=== PATIENT | female | born 2000 | race Caucasian/White ===

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

== ENCOUNTER → 2020-08-11 | Outpatient (CLI) | payer OTHER | END | disposition home or self-care (01) | LOC: LABWHC1 13:59 | PROVIDERS: ATTEND Obstetrics & Gynecology | DX: Z34.81 Encounter for supervision of other normal pregnancy, first trimester (principal); Z3A.00 Weeks of gestation of pregnancy not specified | CPT/HCPCS: 86900; 86901 ==

== ENCOUNTER 2021-01-16 22:30 | Outpatient (CLI) | payer OTHER ==
[2021-01-16] MEDS ORDERED: ONDANSETRON 4 MG/2 ML VIAL IVP STA (23:10)
[2021-01-16] MEDS: LACTATED RINGERS 1,000 ML IV SCH (23:30)
[2021-01-16 23:38] VITALS: BP 136/77; PULSE 125; RESP 18; TEMP 98.2
[2021-01-17 00:01] LABS: Appearance,Urine Cloudy (Clear); Bilirubin,Urine Negative (Negative); Blood,Urine Negative (Negative); Color,Urine Yellow; Glucose,Urine (UA) Negative (Negative); Ketones,Urine 4+ (Negative); Leukocyte Esterase,Urine Small (Negative); Mucus,Urine Rare /hpf; Nitrite,Urine Negative (Negative); Protein,Urine 1+ (Negative); Specific Gravity,Urine 1.031 (1.001-1.035); Squamous Epithelial Cell,Urine 7 /hpf (0-4); WBC,Urine 3 /hpf (0-5)
[2021-01-17] MEDS: LACTATED RINGERS 1,000 ML IV SCH (00:42)
--- NOTE | 2021-01-26 17:39 | P.MSEPDOC ---
Presenting Problems - Arrival Data Date of Arrival on Unit: 01/16/21 Time of Arrival on Unit: 22:30 Mode of Transport: Ambulatory - Complaint OB-Reason for Admission/Chief Complaint: Acute Nausea/Vomiting Comment: pt states having n/v all day, back pain and stomach tighening Medical History - Information : 2 Para: 1 Term: 1 : 0 Abortions: Spontaneous or Elective: 0 Number of Living Children: 1 - Gestational Age Gestational Age by CRYSTAL (wks/days): 33 Weeks and 3 Days Review of Systems - Review of Systems Constitutional: No problems Breast: No problems ENT: No problems Cardiovascular: No problems Respiratory: No problems Gastrointestinal: No problems Genitourinary: No problems Musculoskeletal: No problems Neurological: No problems Skin: No problems Vital Signs - Temperature Temperature: 98.2 F Temperature Source: Temporal Artery Scan - Pulse Right Brachial Pulse Rate: 125 Pulse Assessment Method: Automatic Cuff - Respirations Respiratory Rate: 18 Oxygen Delivery Method: Room Air - Blood Pressure Right Arm Blood Pressure: 136/77 Blood Pressure Mean: 96 Blood Pressure Source: Automatic Cuff Medical Screen Scoring (Pre) - Cervical Exam Dilation: 0 cm = 0 Membranes: Intact - Uterine Contractions Frequency: < 36 weeks = 6 Intensity: N/A - Maternal Vital Signs Maternal Temperature: N/A Maternal Blood Pressure: N/A Signs of Preeclampsia: N/A Maternal Respirations: N/A - Maternal Trauma Maternal Trauma: N/A - Assessment - Baby A Baseline FHR: 140 Heart Rate - NICHD Category: Category I (Normal) = 0 NST: Reactive Position: N/A Station: N/A - Total Score - Baby A Total Score - Baby A: 6 - Total Score - Baby B Total Score - Baby B: 6 - Total Score - Baby C Total Score - Baby C: 6 - Level of Risk - Baby A Level of Risk - Baby A: Medium (6-9) - Level of Risk - Baby B Level of Risk - Baby B: Medium (6-9) - Level of Risk - Baby C Level of Risk - Baby C: Medium (6-9) Physician Notification (Pre) - Physician Notified Physician Notified Date: 01/16/21 Physician Notified Time: 23:10 New Order Received: Yes - Notification Comment Comment: pt given IVF, zofran, ua obtained Disposition - Disposition OB Disposition: Triage Discharge Date: 01/17/21 Discharge Time: 01:25 I agree with the RN Medical Screening Exam: Yes Physician's MSE Comment: Patient was seen and examined by myself Case reviewed; plan agreed upon as documented in EMR&OBIX.: Yes Diagnosis: VOMITING OF , UNSPECIFIED
== END 2021-01-17 01:35 | disposition home or self-care (01) ==
LOC: FBPOP 22:30
PROVIDERS: ATTEND Obstetrics & Gynecology Obstetrics
DX: O21.2 Late vomiting of pregnancy (principal); Z3A.33 33 weeks gestation of pregnancy
CPT/HCPCS: 59025; 96361; 96367; 96374; 81001; G0463; J2405; 99214

== ENCOUNTER 2021-02-08 00:10 | Outpatient (CLI) | payer OTHER ==
[2021-02-08 00:32] VITALS: BP 127/78; PULSE 96; RESP 16; TEMP 96.6
--- NOTE | 2021-02-17 14:12 | P.MSEPDOC ---
Presenting Problems - Arrival Data Date of Arrival on Unit: 02/08/21 Time of Arrival on Unit: 00:10 Mode of Transport: Ambulatory - Complaint OB-Reason for Admission/Chief Complaint: Possible Onset of Labor Comment: Pt presents to triage with c/o contx that started around 2100. Contractions tracing 2-4 minutes apart per toco. Medical History - Information : 2 Para: 1 Term: 0 : 1 Abortions: Spontaneous or Elective: 0 Number of Living Children: 1 - Gestational Age Gestational Age by CRYSTAL (wks/days): 36 Weeks and 5 Days Review of Systems - Review of Systems Constitutional: No problems Breast: No problems ENT: No problems Cardiovascular: No problems Respiratory: No problems Gastrointestinal: No problems Genitourinary: No problems Musculoskeletal: No problems Neurological: No problems Skin: No problems Vital Signs - Temperature Temperature: 96.6 F Temperature Source: Temporal Artery Scan - Pulse Right Brachial Pulse Rate: 96 Pulse Assessment Method: Automatic Cuff - Respirations Respiratory Rate: 16 Oxygen Delivery Method: Room Air - Blood Pressure Right Arm Blood Pressure: 127/78 Blood Pressure Mean: 94 Blood Pressure Source: Automatic Cuff Medical Screen Scoring (Pre) - Cervical Exam Dilation: 1-3 cm = 1 Effacement: Exam Deferred Membranes: Intact - Uterine Contractions Frequency: > or = 36 weeks =2 Duration: > 40 seconds = 2 Intensity: N/A - Maternal Vital Signs Maternal Temperature: N/A Maternal Blood Pressure: N/A Signs of Preeclampsia: N/A Maternal Respirations: N/A - Maternal Trauma Maternal Trauma: N/A - Assessment - Baby A Baseline FHR: 115 Heart Rate - NICHD Category: Category I (Normal) = 0 NST: Reactive Position: N/A Station: N/A - Total Score - Baby A Total Score - Baby A: 5 - Total Score - Baby B Total Score - Baby B: 5 - Total Score - Baby C Total Score - Baby C: 5 - Level of Risk - Baby A Level of Risk - Baby A: Low (0-5) - Level of Risk - Baby B Level of Risk - Baby B: Low (0-5) - Level of Risk - Baby C Level of Risk - Baby C: Low (0-5) Physician Notification (Pre) - Physician Notified Physician Notified Date: 02/08/21 Physician Notified Time: 01:30 New Order Received: Yes - Notification Comment Comment: Dr. Short called re: maternal c/o contx starting at 2100, maternal status,. status, SVE, reactive NST, contx pattern, pain scale, and hx of labor. Orders received to give pt big glass of water to see if contx space out and recheck. cervix in 1 hour. If pt makes no cervical change pt can be discharged home. Disposition - Disposition OB Disposition: Discharge to home Discharge Date: 02/08/21 Discharge Time: 02:35 I agree with the RN Medical Screening Exam: Yes Physician's MSE Comment: Patient was not seen or examined by myself Case reviewed; plan agreed upon as documented in EMR&OBIX.: Yes Diagnosis: RELATED CONDITIONS, UNSPECIFIED, THIRD TRIMESTER
== END 2021-02-08 02:35 | disposition home or self-care (01) ==
LOC: FBPOP 00:10
PROVIDERS: ATTEND Obstetrics & Gynecology Obstetrics
DX: O26.93 Pregnancy related conditions, unspecified, third trimester (principal); Z3A.36 36 weeks gestation of pregnancy
CPT/HCPCS: 59025; G0463; 99213

== ENCOUNTER 2021-02-20 00:57 | Inpatient (IN) | payer OTHER ==
[2021-02-20] MEDS ORDERED: OXYTOCIN 10 UNIT/ML 1 ML VIAL IM PRN (03:53)
[2021-02-20] MEDS ORDERED: METHYLERGONOVINE 0.2 MG/ML 1 ML AMP IM PRN (03:53)
[2021-02-20] MEDS ORDERED: TERBUTALINE 1 MG/ML VIAL SQ PRN (03:53)
[2021-02-20] MEDS ORDERED: LIDOCAINE 0.5% (PF) 5 MG/ML (50 ML SDV) SQ PRN (03:53)
[2021-02-20] MEDS ORDERED: CARBOPROST TROMETHAMINE 250 MCG/ML 1 ML AMP IM PRN (03:53)
[2021-02-20] MEDS ORDERED: BUTORPHANOL 1 MG/ML 1 ML VIAL IV PRN (03:57)
[2021-02-20] MEDS: LACTATED RINGERS 1,000 ML IV SCH ×3 (04:10→14:15)
[2021-02-20 04:18] LABS: Basophils % (A) 0 %; Eosinophils # (A) 0.3 k/uL (0-0.7); Eosinophils % (A) 3 %; HCT 37.1 % (34.0-46.0); HGB 13.1 gm/dL (11.4-16.0); Lymphocytes # (A) 2.3 k/uL (1.0-4.8); Lymphocytes % (A) 20 %; MCH 31.1 pg (25.0-35.0); MCHC 35.3 g/dL (31.0-37.0); Mean Platelet Volume 10.1; Monocytes # (A) 0.6 k/uL (0-1.0); Monocytes % (A) 6 %; Neutrophils # (A) 7.8 k/uL (1.3-7.7); Neutrophils % (A) 70 %; Platelet Count 280 k/uL (150-450); RBC 4.22 m/uL (3.80-5.40); RDW 12.9 % (11.5-15.5); WBC 11.2 k/uL (3.8-10.6)
[2021-02-20] MEDS ORDERED: OXYTOCIN 30 UNITS/500 ML NS 30 UNIT in SALINE 1 500ML.BAG IV SCH (07:00)
--- NOTE | 2021-02-20 09:21 | P.HPOB ---
History of Present Illness H&P Date: 02/20/21 Chief Complaint: My water broke at home, clear fluid This is a 21-year-old female 2 para 1001 EDC 03/03/2021 at 38-3/7 weeks' gestation. Patient presented to the hospital with a complaint of her water breaking at home, clear fluid. She was having no uterine contractions upon admission. Fetus is been active throughout the . Past medical history significant for anxiety and depression, lymphedema, ovarian cyst age 16, benign. Past surgical history tubes in the ears as a child, wisdom teeth extracted. Current medications vitamins daily, baby aspirin daily. ALLERGIES include solid 3 to which reports swelling of the tongue and lips. eggs, soy ALLERGY and penicillin ALLERGY to which patient does not report a reaction. Family history is significant for for hypertension, depression, pancreatic cancer, heart attack, and benign ovarian cysts. Social history patient is a previous tobacco smoker, she is engaged to be , she denies alcohol or drug use. history significant for blood type O-, RhoGam received. Group B strep cultures negative. HIV testing, gonorrhea and chlamydia cultures, VDRL, urine culture all negative. One-hour Glucola 114. On exam patient is 5 foot 3 inches, 172 pounds, blood pressure 138/78, pulse 86. The general physical exam is within normal limits. There is obvious clear fluid on the perineal body. Cervix is 3 cm dilated, 60% effaced, -2 station, vertex presentation. heart rate is consistent with reactive NST. Mild uterine contractions are noted. Impression: 38-3/7 weeks intrauterine , spontaneous amniorrhexis. All signs reassuring. Plan: Oxytocin per hospital protocol. Close maternal and surveillance. Anticipate normal spontaneous vaginal delivery. Analgesic options reviewed with the patient. Past Medical History Past Medical History: Asthma Additional Past Medical History / Comment(s): depression, anxiety. History of Any Multi-Drug Resistant Organisms: None Reported Past Surgical History: Ear Surgery Additional Past Surgical History / Comment(s): Sentinel teeth removed, tubes in ears Past Anesthesia/Blood Transfusion Reactions: No Reported Reaction Past Psychological History: Anxiety, Depression Additional Psychological History / Comment(s): cutting self. Smoking Status: Former smoker Past Alcohol Use History: None Reported Past Drug Use History: Marijuana Additional Drug Use History / Comment(s): stop using Marijuana at begining of prgnancy when found out. - Past Family History Mother History Unknown: Yes Family Medical History: Congestive Heart Failure (CHF) Medications and Allergies Home Medications Medication Instructions Recorded Confirmed Type Pnv No.95/Ferrous Fum/Folic AC 1 tab PO ONCE 08/07/19 02/20/21 History [ Multivitamin Tablet] Aspirin [Children's Aspirin] 81 mg PO DAILY 01/16/21 02/20/21 History Allergies Allergy/AdvReac Type Severity Reaction Status Date / Time amoxicillin Allergy Swelling Verified 02/20/21 01:01 celery Allergy Swelling Verified 02/20/21 01:01 egg Allergy Swelling Verified 02/20/21 01:01 Penicillins Allergy Swelling Verified 02/20/21 01:01 soy Allergy Swelling Verified 02/20/21 01:01 Exam Vital Signs Temp Pulse Resp BP Pulse Ox 02/20/21 03:56 97.9 F 98 98 H 125/82 97 02/20/21 01:03 96.8 F L 86 16 133/78 99 Intake and Output 02/19/21 02/20/21 02/20/21 22:59 06:59 14:59 Other: # Voids 1 Weight 78.018 kg See dictation under HPI please Results Result Diagrams: 02/20/21 04:05 Abnormal Lab Results - Last 24 Hours (Table) 02/20/21 Range/Units 04:05 WBC 11.2 H (3.8-10.6) k/uL Neutrophils # 7.8 H (1.3-7.7) k/uL Assessment and Plan Assessment: 38-3/7 weeks intrauterine , spontaneous amniorrhexis at home. All signs reassuring. Plan: Oxytocin per hospital protocol. Continue close maternal and surveillance. Analgesic options reviewed with the patient. Anticipate normal spontaneous vaginal delivery. Time with Patient: Less than 30
[2021-02-20] MEDS ORDERED: ROPIVACAINE 100 MG, fentaNYL (PF). 200 MCG in SODIUM CHLORIDE 0.9% 76 ML EPIDURAL ONE (10:30)
[2021-02-20] MEDS ORDERED: BENZOCAINE/MENTHOL SPRAY 1 GM/SPRAY AEROSOL TOPICAL PRN (14:17)
[2021-02-20] MEDS ORDERED: diphenhydrAMINE 50 MG/ML 1 ML VIAL IVP PRN ×2 (14:17)
[2021-02-20] MEDS ORDERED: HYDROCORTISONE 2.5% RECTAL CREAM 30 GM TUBE RECTAL PRN (14:17)
[2021-02-20] MEDS ORDERED: LANOLIN CREAM 5 GM TUBE TOPICAL PRN (14:17)
[2021-02-20] MEDS ORDERED: ACETAMINOPHEN TAB 325 MG TAB PO PRN (14:17)
[2021-02-20] MEDS ORDERED: ZOLPIDEM 5 MG TAB PO PRN (14:17)
[2021-02-20] MEDS ORDERED: diphenhydrAMINE 25 MG CAP PO PRN (14:17)
[2021-02-20] MEDS ORDERED: SIMETHICONE 80 MG CHEWABLE PO PRN (14:17)
[2021-02-20] MEDS ORDERED: diphenhydrAMINE 50 MG CAP PO PRN (14:17)
--- NOTE | 2021-02-20 14:17 | P.PROBDLV ---
Vaginal Delivery Note - . Vaginal Delivery Note: This is a 21-year-old white female 2 para 1001 EDC 03/03/2021 at 38-3/7 weeks' gestation who presented earlier this morning with spontaneous amniorrhexis, clear fluid which occurred at home. is remarkable for blood type O negative, rubella status immune, group B strep cultures negative. Please see dictated history and physical for details. Oxytocin was started per hospital protocol. Epidural was placed per her request. heart tones were reassuring throughout the first and second stages of labor. She became completely dilated at 13 30 hours and began the second stage of labor at that time. With excellent maternal expulsive efforts the perineal body was prepped and draped in usual sterile fashion, and the infant's head delivered occiput anterior. He restituted accordingly. There was no nuchal cord noted. Patient was officially delivered of a liveborn male infant at 1346 hrs. Umbilical cord was doubly clamped and ligated, he was handed to waiting nurses for evaluation where scores of 8 and 9 at one and 5 minutes respe ctively were given. weighed 7 pounds 10.6 ounces or 3475 g. Placenta delivered spontaneously, it was inspected and noted to be intact with trivascular cord at 1350 hrs. At this time the uterus is massaged. Inspection of cervix, vagina, perineum, and perirectal areas reveals no lacerations or defects. Total estimated blood loss 450 mL's. Patient is allowed to begin the bonding experience in the LDR with her son. She is requesting circumcision for her baby.
[2021-02-20 20:02] VITALS: RESP 16
[2021-02-20] MEDS: SENNOSIDES-DOCUSATE SODIUM 1 EACH TAB PO SCH (20:47)
[2021-02-20] MEDS: IBUPROFEN 600 MG TAB PO SCH (20:47)
[2021-02-21] MEDS: IBUPROFEN 600 MG TAB PO SCH ×3 (02:55→15:16)
[2021-02-21] MEDS ORDERED: Rhogam IMMUNE GLOBULIN 1,500 UNIT/1 ML IM ONE (04:39)
[2021-02-21] MEDS: LACTATED RINGERS 1,000 ML IV SCH (07:45)
[2021-02-21] MEDS: SENNOSIDES-DOCUSATE SODIUM 1 EACH TAB PO SCH (07:59)
--- NOTE | 2021-02-21 09:22 | P.DS ---
Providers Date of admission: 02/20/21 03:50 Expected date of discharge: 02/21/21 Attending physician: Rajni Brasher Primary care physician: Stated None Hospital Course: This is a 21-year-old female 2 para 1001 EDC 520 11/03/1929 3/7 weeks' gestation. Patient presented with spontaneous amniorrhexis which occurred at home, clear fluid. remarkable for blood type O-, rubella status immune, group B strep cultures negative. Please see dictated history and physical for details. Oxytocin augmentation was started. Epidural was placed per her request. She went on to deliver a liveborn male infant vaginally, with scores of 8 and 9 at one and 5 minutes respectively. weighed 7 pounds 10.6 ounces or 3475 g. There was no episiotomy or laceration encountered. Estimated blood loss 1 50 mL's. Please see dictated delivery note for details. This morning the patient is doing well. She is voiding, ambulating, passing flatus without difficulty. Vital signs are stable and she is afebrile. Fundus is firm and in the midline, symmetric and 18 week size. Extremities are negative for edema. is doing well, circumcision will be performed this morning. Patient is judged to be in very good condition for discharge home. She will follow-up with me in the office in 6 weeks. I have reminded her no intercourse, tampons or douching. We have discussed briefly options for contraception and we will discuss this further in the office. She will use [id number] Advil or Aleve, or Motrin as needed for pain. I've asked her to call me with any fevers shakes or chills, foul smelling or copious lochia, with the passage of large blood clots, with any pain not alleviated by [id number] products, or indeed with any concerns. Assessment: Doing well day #1 Patient Condition at Discharge: Good Plan - Discharge Summary Discharge Rx Participant: No New Discharge Prescriptions: No Action Pnv No.95/Ferrous Fum/Folic AC [ Multivitamin Tablet] 1 tab PO ONCE Aspirin [Children's Aspirin] 81 mg PO DAILY Discharge Medication List Pnv No.95/Ferrous Fum/Folic AC [ Multivitamin Tablet] 1 tab PO ONCE 08/07/19 [History] Aspirin [Children's Aspirin] 81 mg PO DAILY 01/16/21 [History] Follow up Appointment(s)/Referral(s): Rajni Brasher MD [STAFF PHYSICIAN] - 6 Weeks Discharge Disposition: HOME SELF-CARE
[2021-02-22] MEDS: SENNOSIDES-DOCUSATE SODIUM 1 EACH TAB PO SCH ×2 (02:10→15:03)
[2021-02-22] MEDS: IBUPROFEN 600 MG TAB PO SCH ×2 (02:13→15:03)
[2021-02-22 16:16] VITALS: BP 118/72; PULSE 68; TEMP 98.3
== END 2021-02-22 18:00 | disposition home or self-care (01) | DRG 807 ==
LOC: FBPOP 00:57 → 4FBP 03:50
PROVIDERS: ADMIT Obstetrics & Gynecology Obstetrics; ATTEND Obstetrics & Gynecology
PROC: 10E0XZZ Delivery of Products of Conception, External Approach (ICD-10-PCS; principal; 2021-02-20)
DX: O99.52 Diseases of the respiratory system complicating childbirth (principal); Z37.0 Single live birth; J45.909 Unspecified asthma, uncomplicated; Z3A.38 38 weeks gestation of pregnancy; Z79.82 Long term (current) use of aspirin; Z80.0 Family history of malignant neoplasm of digestive organs; Z81.8 Family history of other mental and behavioral disorders; Z82.49 Family history of ischemic heart disease and other diseases of the circulatory system; Z87.891 Personal history of nicotine dependence; Z88.0 Allergy status to penicillin
CPT/HCPCS: 59025; 84112; 85025; 85461; 86850; 86900; 86901; 99215

== ENCOUNTER → 2022-07-19 | Outpatient (CLI) | payer OTHER ==
[2022-07-19 21:44] LABS: Gliadin AB IgA, Deaminated NEGATIVE (NEGATIVE); Gliadin AB IgG, Deaminated NEGATIVE (NEGATIVE); Gliadin AB IgG, Unit <0.4 U/mL
== END | disposition home or self-care (01) ==
LOC: LABWHC1 15:00
PROVIDERS: ATTEND Internal Medicine Gastroenterology
DX: K52.9 Noninfective gastroenteritis and colitis, unspecified (principal)
CPT/HCPCS: 36415; 83516; 85652; 86140